=== PATIENT | female | born 1980 | race Caucasian/White ===

== ENCOUNTER 2017-01-10 20:35 | Emergency (ER) | payer OTHER ==
[2017-01-10] MEDS ORDERED: HYDROcodone/ACETAMINOPHEN 1 EACH TABLET PO ONE ×2 (20:57→22:42)
--- NOTE | 2017-01-10 21:01 | ERNOTE ---
ER Female HPI Date of Service: 01/10/17 Stated Complaint: ABD PAIN, BLEEDING, 8 WEEKS PREG Presenting Symptoms: pelvic pain, vaginal bleeding Time Seen by Provider: 01/10/17 20:41 Immunizations: IMMUNIZATION HX Immunizations Up to Date Yes History of Influenza Vaccine Yes Allergies/Adverse Reactions: Allergies No Known Drug Allergies Allergy (Verified 01/10/17 20:46) Home Medications: HOME MEDICATIONS Acetaminophen [Tylenol] 1,000 mg PO Q4H PRN 01/10/17 [Last Taken 01/10/17 16:00] Folic Acid 1 mg PO DAILY 01/10/17 [Last Taken Unknown] HYDROcodone/ACETAMINOPHEN [Diagonal 5-325] 1 each PO Q4H PRN #10 tablet 01/10/17 [ Last Taken Unknown] - History of Present Illness Narrative: This is a 36-year-old female at about 8 weeks by LMP. Patient reports she 's been having trouble conceiving and so she saw her [employer]CE [employer] doctor Dr. Jaramillo, at the end of October. He told her that she needed to have a procedure done in order to get . Locally the patient became at the end of November. She had 2 positive tests the first on December 10 the second on December 16. He has had no care with this baby so far. The patient reports 10 days ago she started having scant vaginal bleeding. This was dark brown blood. It is progressed to bright red blood with clots. Over the last 3 days she has also developed pretty severe pelvic pain with radiation into the back. She says that this evening she passed a large lump of material that looked like liver, and then she passed something else which she brought in her bag. This is a whitish material. May be tissue. Patient has some nausea and was having vomiting today. She denies fever or chills. She denies any other complaints Review of Systems - Review of Systems Constitutional: Present: no symptoms reported EYE: Present: no symptoms reported ENT: Present: no symptoms reported Respiratory: Present: no symptoms reported Cardiology: Present: no symptoms reported Gastrointestinal/Abdominal: Present: no symptoms reported Genitourinary: Present: no symptoms reported Musculoskeletal: Present: no symptoms reported Skin: Present: no symptoms reported Neurological: Present: no symptoms reported Endocrine: Present: no symptoms reported Hematologic/Lymphatic: Present: no symptoms reported Psych: Present: no symptoms reported - Patient's Past Medical History Patient History - Medical: No pertinent hx Patient History - Cardiac/Respiratory: No pertinent hx Patient History - Cancer: No Hx of Cancer Patient History - Surgical Procedures: No surgical history Patient History - Other: None LMP (Calendar): 10/30/16 - Social History Living Situations: home Abuse History: No History of abuse Psych History: No pertinent hx Smoking Status: Never smoker Alcohol Use: none Drug Use: none - Immunizations Immunizations Up to Date: Yes History of Influenza Vaccine: Yes Physical Exam - Physical Exam General Appearance: Present: wd/wn, alert, no apparent distress Head Exam: Present: normal inspection, no evidence of injury Eye Exam: Normal inspection: bilateral, PERRL: bilateral, EOMI: bilateral Ears, Nose, Throat: Present: normal ENT inspection, normal pharynx Neck: Present: normal inspection, nontender Respiratory: Present: no respiratory distress, normal breath sounds, no accessory muscle use, chest nontender, lungs clear Cardiovascular/Chest: Present: regular rate, rhythm, no murmur, normal peripheral pulses Gastrointestinal/Abdominal: Present: normal bowel sounds, nontender, nondistended, soft, no organomegaly Pelvic Exam: Present: other - pelvic exam demonstrated blood clots in the vaginal vault. Normal-appearing mucosa. The os is closed with clots through the os Back Exam: Present: normal inspection, normal range of motion, no CVA tenderness , no vertebral tenderness Extremity Exam: Present: normal inspection, non-tender, normal range of motion, no edema Neurological Exam: Present: alert, oriented, normal mood/affect, no motor/ sensory deficits Skin Exam: Present: normal color, warm/dry Lymphatic Exam: Present: no adenopathy ED Progress - Results and Orders Patient's Lab Results:: I have reviewed the patient's lab results. - Vital Signs Patient's Vital Signs:: I have reviewed the patient's vital signs. Vital Signs: Vital Signs 01/10/17 20:40 Temperature 37.1 C Pulse Rate 95 Respiratory 18 Rate Blood Pressure 142/89 O2 Sat by Pulse 98 Oximetry - Progress/Reassessment Chief Complaint: Genitourinary Problem Progress:: Unchanged Departure Clinical Impression: Threatened miscarriage - Departure Disposition: Home self-care Condition: Fair Instructions: Threatened Miscarriage, [id number], Pelvic Rest Additional Instructions: As we discussed the tests done here in the ER do not show a baby growing in her uterus. The hormone level is lower than I would expect. His does not mean that the baby is not growing or is not still there, but I have a very high suspicion that you have miscarried. Next We need to recheck your hormone level, the HCG, in 2-3 days. Your level tonight was 7500. In a couple of days it should increase to 15,000. If it goes down that means the baby is not survived. Y to call your [employer] AND MAINTENA[employer]CE [employer]PECTOR doctor, tell them you were seen in the ER, and set up a follow-up appointment. Next Certainly if he develops so much bleeding that you are becoming dizzy or lightheaded, or U think the bleeding is more excessive than we would expect, you should return to the ER. He can take the prescribed hydrocodone to help with severe pain. No driving or operating machinery while taking this. Return for new or worrisome symptoms Referrals: Sage Witt MD [Primary Care Provider] - Prescriptions: HYDROcodone/ACETAMINOPHEN [Diagonal 5-325] 1 each PO Q4H PRN #10 tablet PRN Reason: Pain
[2017-01-10 21:06] LABS: Hematocrit 36.1 % (37.0-47.0); Hemoglobin 12.1 gm/dL (12.5-16.0); Mean Cell Volume 83.4 fl (78-100); Mean Corpuscular Hemoglobin 27.9 pg (27-31); Mean Corpuscular Hgb Conc 33.5 g/dl (32-36); Mean Platelet Volume 8.8 fl (6.0-9.5); Neutrophil # 12.2 K/mm3 (1.3-6.0); Platelet Count 326 K/mm3 (150-450); Red Blood Count 4.33 M/mm3 (4.2-5.4); Red Cell Distribution Width 12.5 % (11.5-14.0); White Blood Count 17.2 K/mm3 (4.0-10.5)
[2017-01-10] MEDS ORDERED: HYDROcodone/ACETAMINOPHEN 1 EACH TABLET ONE ×2 (21:06→22:44)
[2017-01-10 21:34] LABS: Anion Gap 16.6 mmol/L (6.8-13.8); BUN/Creatinine Ratio 14.9 (9.0-21.6); Bilirubin, Total 0.4 mg/dL (0.0-1.1); Ca. Corrected For Albumin 8.5 mg/dL (8.4-10.2); Calcium * 8.8 mg/dL (7.9-10.9); Carbon Dioxide 23.1 mmol/L (24-32.6); Potassium 3.7 mmol/L (3.4-4.6); Total Protein 7.7 gm/dL (6.2-8.2)
[2017-01-10 22:25] LABS: Urine Bilirubin Negative (NEGATIVE); Urine Blood 250 /ul (NEGATIVE); Urine Ketone Negative (NEGATIVE); Urine Nitrite Negative (NEGATIVE); Urine Protein 15 mg/dL (NEGATIVE); Urine Specific Gravity >=1.030 SP.GR. (1.005-1.010); Urine Urobilinogen Normal (NORMAL); Urine pH 5.5 pH (5.0-7.0)
[2017-01-10 22:33] LABS: Urine Appearance Slightly Cloudy; Urine Color Orange; Urine RBC >50 /hpf (0-5); Urine WBC None Seen /hpf (0-5)
[2017-01-10 22:34] LABS: Urine Bacteria TRACE
[2017-01-10] MEDS ORDERED: HYDROmorphone HCL 1 MG/ML DISP.SYRIN ONE (22:51)
[2017-01-10] MEDS ORDERED: HYDROmorphone HCL 1 MG/ML DISP.SYRIN SC ONE (22:51)
[2017-01-10 23:10] VITALS: BP 138/80
== END 2017-01-10 23:16 | disposition home or self-care (01) ==
LOC: ER 20:35
DX: O20.0 Threatened abortion (principal); Z3A.08 8 weeks gestation of pregnancy